=== PATIENT | female | born 1985 | race Caucasian/White ===

== ENCOUNTER 2019-02-17 16:40 | Inpatient (IN) | payer BC ==
[2019-02-17 17:51] VITALS: BMI 31.9
[2019-02-17 19:26] LABS: BASO % 0.4 % (0-2.0); EOS % 0.8 % (0-4.5); HEMATOCRIT 34.7 % (32.4-45.2); HEMOGLOBIN 11.6 GM/dL (10.7-15.3); LYMPH % 15.5 % (8-40); MCH 27.6 pg (25.7-33.7); MCHC 33.3 g/dl (32.0-36.0); MEAN CELL VOLUME 82.9 fl (80-96); MEAN PLT VOLUME 8.6 fl (7.5-11.1); MONO % 4.6 % (3.8-10.2); NEUT % 78.7 % (42.8-82.8); PLATELET COUNT 270 K/MM3 (134-434); RBC 4.19 M/mm3 (3.60-5.2); RDW 14.1 % (11.6-15.6); WHITE BLOOD COUNT 12.5 K/mm3 (4.0-10.0)
[2019-02-17 19:38] LABS: BLOOD UREA NITROGEN 16.3 mg/dL (7-18); CALCIUM 8.8 mg/dL (8.5-10.1); CREATININE 0.6 mg/dL (0.55-1.3)
[2019-02-17 19:42] LABS: INR 0.91 (0.83-1.09); PROTHROMBIN TIME (PATIENT) 10.7 SEC (9.7-13.0)
[2019-02-17 19:44] LABS: ACTIVATED PTT 28.7 SECONDS (25.2-36.5)
[2019-02-17] MEDS ORDERED: OXYTOCIN 30 UNITS in 0.9% NS 30 UNIT/500 ML INFUS.BAG IVPB ONE (20:22)
[2019-02-17] MEDS ORDERED: AMPICILLIN SODIUM 2 GM VIAL ONE (20:22)
[2019-02-17] MEDS ORDERED: BUTORPHANOL TARTRATE 1 MG/ML VIAL IVPB ONE (20:27)
[2019-02-17] MEDS ORDERED: PROMETHAZINE HCL 25 MG/1 ML VIAL IVPUSH ONE (20:27)
[2019-02-17] MEDS ORDERED: ELECTROLYTE-148 SOLN 1,000 ML IV SCH (20:30)
[2019-02-17] MEDS ORDERED: AMPICILLIN - 2 GM in SODIUM CHLORIDE 100 ML IVPB ONE (20:35)
--- NOTE | 2019-02-17 20:41 | HP ---
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: Alzheimer's, CVA, Dementia, Migraine, Multiple Sclerosis, Peripheral Neuropathy, Parkinson's, Seizure, Syncope, TIA, Vertigo, Other Cardiovascular: No: AFIB, Aneurysm, Aortic Insufficiency, Aortic Stenosis, CAD, CHF, Deep Vein Thrombosis, HTN, Hyperlipdemia, SC, Mitral Insufficiency, Mitral Stenosis, Murmur, Pulmonary Hypertension, Other Pulmonary: No: Asthma, Bronchitis, Cancer, COPD, O2 Dependent, Pneumonia, Previously Intubated, Pulmonary Embolus, Pulmonary Fibrosis, Sleep Apnea, Other Gastrointestinal: No: Ascites, Cancer, Constipation, Crohn's Disease, Diverticulitis, Diverticulosis, Esophageal Varices, Gastritis, GERD, GI Bleed, Hemorrhoids, Hiatal Hernia, Inflamatory Bowel Disease, Irritable Bowel Disease, Pancreatitis, Peptic Ulcer Disease, Ulcerative Colitis, Other Hepatobiliary: No: Cirrhosis, Cholelithiasis, Cholecystitis, Choledocholithiasis , Hepatitis A, Hepatitis B, Hepatitis C, Other Renal/: No: Renal Failure, Renal Inusuff, BPH, Cancer, Hematuria, Hemodialysis , Neurogenic Bladder, Renal Calculi, UTI, Other Reproductive: No: Ectopic , Endometriosis, Fibroids, PID, Polycystic Ovary Syndrome, Postmenopausal, Other ...: 2 ...Para: 0 ...Term: 0 ...: 0 ...Spon : 1 ...Induced : 0 ...Multiple Gestation: 0 ...EDC by Sono: 02/11/19 Heme/Onc: No: Anemia, B12 Deficiency, Bleeding Disorder, Cancer, Current Chemotherapy, Current Radiation Therapy, Hemochromatosis, Hypercoaguable State, Myeloproliferative Synd, Sickle Cell Disease, Sickle Cell Trait, Thrombocytopenia, Other Infectious Disease: No: AIDS, C-Diff, Herpes Zoster, HIV, MRSA, STD's, Tuberculosis, VREF, Other Psych: No: Addictions, Anxiety, Bipolar, Depression, Panic, Psychosis, Schizophrenia, Other Musculoskeletal: No: Bursitis, Chronic low back pain, Hemiparesis, Hemiplegia, Osteoarthritis, Paraplegia, Other Rheumatology: No: Fibromyalgia, Gout, Lupus, Rheumatoid Arthritis, Sarcoidosis, Vasculitis, Other ENT: No: Allergic Rhinitis, Sinusitis, Other Endocrine: No: [place]'s Disease, [place]'s Disease, Diabetes Insipidus, Diabetes Mellitus, Hyperparathyroidism, Hyperthyroidism, Hypothyroidism, Osteopenia, SIADH, Other Dermatology: No: Basal Cell, Cellulitis, Eczema, Melanoma, Psoriasis, Squamous Cell, Other - Past Surgical History Past Surgical History: No: None, AAA Repair, AICD, Amputation, Appendectomy, Arthrosocopy, AV Fistula/Graft, Bariatric Surgery, Breast Biopsy, Bypass, CABG, Carotid Endarterectomy, Cataract Removal, Cholecystectomy, Colectomy, Colonoscopy, Colostomy, Craniotomy, , Cystectomy, Hernia Repair, Hysterectomy, Ileal Conduit, Ileosotomy, Joint Replacement, Kidney Transplant, Laminectomy, Liver Transplant, Mastectomy, Nephrectomy, Oopherectomy, Orchiectomy, Permanent Pacemaker, Prostatectomy, Splenectomy, Stent, Thoracotomy , TURP, Tonsillectomy, Tubal Ligation, Upper Endoscopy, Valve Replacement, Vasectomy, Vein Stripping/Ligation Hx Myomectomy: No Hx Transabdominal Cerclage: No - Advance Directives Advance Directives: No: Living Will, Health Care Proxy, DNR, Organ Donor, Tissue Donor, MOLST - Smoking History Smoking history: Never smoked Have you smoked in the past 12 months: No - Alcohol/Substance Use Hx Alcohol Use: No History of Substance Use: reports: None - Social History Usual Living Arrangement: Yes: With Spouse Do you think of yourself as: Straight/Heterosexual ADL: Independent History of Recent Travel: No Home Medications - Allergies Allergies/Adverse Reactions: Allergies Allergy/AdvReac Type Severity Reaction Status Date / Time No Known Allergies Allergy Verified 02/17/19 17:32 - Home Medications Home Medications: Ambulatory Orders Prenat 115/Iron Fum/Folic/Dss [ 19 Tablet] 1 tab PO DAILY 02/17/19 Family Medical History Family History: Denies Review of Systems - Review of Systems Constitutional: reports: No Symptoms Eyes: reports: No Symptoms HENT: reports: No Symptoms Neck: reports: No Symptoms Cardiovascular: reports: No Symptoms Respiratory: reports: No Symptoms Gastrointestinal: reports: No Symptoms Genitourinary: reports: No Symptoms Breasts: reports: No Symptoms Reported Musculoskeletal: reports: No Symptoms Integumentary: reports: No Symptoms Neurological: reports: No Symptoms Endocrine: reports: No Symptoms Hematology/Lymphatic: reports: No Symptoms Psychiatric: reports: No Symptoms Pain Intensity: 2 Physical Exam - Maternity Vital Signs: Vital Signs Temperature 97.8 F 02/17/19 17:00 Pulse Rate 84 02/17/19 17:00 Respiratory Rate 20 02/17/19 17:00 Blood Pressure 128/77 02/17/19 17:00 O2 Sat by Pulse Oximetry (%) Constitutional: Yes: Well Nourished, No Distress, Calm Eyes: Yes: WNL, Conjunctiva Clear, EOM Intact HENT: Yes: WNL, Atraumatic, Normocephalic Neck: Yes: WNL, Supple, Trachea Midline Cardiovascular: Yes: WNL, Regular Rate and Rhythm Lungs: Clear to auscultation Breast(s): Yes: WNL - Abdominal Exam/OB Fundal Height: 40 Number of Fetuses: Single Presentation: Vertex Contractions: Yes Regularity: Irregular Intensity: Mild/Mod Monitor Mode: External Heart Rate Location: [facility] Category: I Accelerations: Uniform - Vaginal Exam/OB Vaginal Bleediing: No Speculum Exam: No Dilatation (cm): 2 Effacement (%): 60 Amniotic Membrane Status: Ruptured Amniotic Fluid: Yes: Clear Presentation: Vertex/Position Station: -2 - Physical Exam Musculoskeletal: Yes: WNL Extremities: Yes: WNL Edema: Yes Edema: LUE: 1+, RUE: 1+, LLE: 1+, RLE: 1+ Integumentary: Yes: WNL Deep Tendon Reflex Grade: Normal +2 ...Motor Strength: WNL Psychiatric: Yes: WNL, Alert, Oriented - Labs Lab Results: CBC, BMP 02/17/19 18:56 02/17/19 18:56 Assessment/Plan for induction w pitocin
[2019-02-17] MEDS ORDERED: OXYTOCIN 30 UNITS in 0.9% NS 30 UNIT/500 ML INFUS.BAG IVPB SCH (20:45)
[2019-02-17] MEDS ORDERED: BUTORPHANOL TARTRATE 1 MG/ML VIAL ONE ×2 (23:26)
[2019-02-17] MEDS ORDERED: PROMETHAZINE HCL 25 MG/1 ML VIAL ONE (23:27)
[2019-02-18] MEDS ORDERED: AMPICILLIN SODIUM 1 GM VIAL ONE (00:53)
[2019-02-18] MEDS: AMPICILLIN - 1 GM in SODIUM CHLORIDE 100 ML IVPB SCH ×2 (00:55→05:13)
[2019-02-18] MEDS ORDERED: FENTANYL/BUPIVACAINE/NS/PF - PCEA - 50 ML DISP.SYRIN EP ONE (01:28)
[2019-02-18] MEDS ORDERED: NALOXONE HCL 0.4 MG/ML VIAL IVPUSH PRN (01:31)
[2019-02-18] MEDS ORDERED: BUPIVACAINE HCL/PF 2.5 MG/ML - 30 ML VIAL IJ ONE (01:33)
[2019-02-18] MEDS ORDERED: FENTANYL/BUPIVACAINE/NS/PF - PCEA - 50 ML DISP.SYRIN EP SCH (01:45)
[2019-02-18] MEDS ORDERED: LIDO 2%/EPI 1:200000 PRESRVFRE (20 ML SDVIAL) ONE (04:20)
[2019-02-18] MEDS ORDERED: ceFAZolin SODIUM 1 GM VIAL ONE (04:28)
[2019-02-18] MEDS ORDERED: OXYTOCIN 10 UNITS/ML VIAL ONE (04:36)
[2019-02-18] MEDS ORDERED: morphine SULFATE/PF 0.5 MG/ML (2cc Syringe - QUVA) ONE ×3 (04:39)
[2019-02-18] MEDS ORDERED: ONDANSETRON 4 MG/2 ML VIAL IVPUSH PRN (04:47)
[2019-02-18] MEDS ORDERED: OXYTOCIN 20 UNITS in 0.9% NS 20 UNIT/1,000 ML INFUS.BAG IV ONE (05:31)
--- NOTE | 2019-02-18 05:31 | PN ---
Progress Note (short form) - Note Progress Note: 11pm nst reactive, occasinal skip fht, uc q 5 min, cx 3 cm , -2, 60%, continue laboring
--- NOTE | 2019-02-18 05:35 | PN ---
Progress Note (short form) - Note Progress Note: 02/18 2 am, 5 to 6 cm , more skip fht, possible deccel x 2 min, then recovered to 160 fht x 10 min, then down to 2 min again, otherwise good variability, accels present, will consider c s if deccel continue
--- NOTE | 2019-02-18 05:38 | PN ---
Progress Note (short form) - Note Progress Note: 02/18 3 am , 7cm , more deccels on and off, reactive, positive accel, positive variability, could be skip fht or heart block, because audible to be 160 range fht, will do c s
[2019-02-18] MEDS ORDERED: oxyCODONE HCL 5 MG TABLET PO PRN (05:42)
[2019-02-18] MEDS ORDERED: METHYLERGONOVINE MALEATE 0.2 MG/1 ML AMP IM PRN (05:42)
--- NOTE | 2019-02-18 05:42 | OP ---
Operative Note - Note: Operative Date: 02/18/19 Pre-Operative Diagnosis: non reassuring fht Operation: primary lt c s Findings: op, no can Post-Operative Diagnosis: Same as Pre-op Surgeon: Donavon Morales Rn Compliance: Chris Demarco Anesthesiologist/CONTROL CLERK: Chris Senior Anesthesia: Epidural Estimated Blood Loss (mls): 700 (no complications ) Operative Report Dictated: Yes
[2019-02-18] MEDS: OXYTOCIN 20 UNITS in 0.9% NS 20 UNIT/1,000 ML INFUS.BAG IV SCH ×2 (06:00→21:47)
[2019-02-18] MEDS: IBUPROFEN 800 MG/8 ML IJ IVPB PRN ×2 (08:05→21:47)
--- NOTE | 2019-02-18 19:40 | OP ---
DATE OF OPERATION: 02/18/2019 PREOPERATIVE DIAGNOSIS: Non-reassuring heart rate tracing, post dates. POSTOPERATIVE DIAGNOSIS: Occiput posterior. PROCEDURE: Primary low-transverse section. SURGEON: Donavon Morales MD SENIOR TECHNICAL BUSINESS ANALYST: PIOTR Mchugh ANESTHESIOLOGIST: Chris Senior MD INDICATION: This is a 33-year-old female patient, 41 weeks , was brought in to the hospital for induction process for post dates reason. The patient was 2 cm dilated to start with. Patient received artificial rupture of membranes and the Pitocin process. When patient came in, on NST the patient did have some occasional skipped heartbeats, and on monitor the heartbeat was skipped and dropped down to half of the normal rate occasionally; however, as the labor proceeded, about 11 o'clock, the patient received Stadol for pain medication, and after that, the patient occasionally had some deeper skipped heartbeat, but they recur. Now patient's pain has gotten worse. The patient received epidural around 2:30 to 3 o'clock. After 2:30 to 3 o'clock, patient's pain proceeded with more deeper heartbeat, then proceeded with more deceleration of heartbeat. This time the fetus skipped heartbeat, or heart block, we are not sure, and dropped down to 70 to 80 range occasionally for 2 or 3 minutes, and we readjusted monitor. We changed to internal monitor 3 times and we changed the toco and the heartbeat still showed that there is either heart block or skipped heartbeat. It dropped down to 70 for 2 minutes, then came back up. We checked the cervix. Patient still remote from delivery, still about 6 cm dilated, and the head still about -1 station, still about 80% effaced, so decision was made to proceed with section with non-reassuring heart rate tracing, with the above finding of occasional either deceleration or skipped heart beat or heart block. Although the patient's baby does have acceleration, baby does have good variability, so decision was made to proceed with section to avoid further deceleration. Patient was taken to the OR. The patient already had epidural anesthesia, so patient was topped off again and patient was placed on the operating table in supine position. The patient's abdomen and pelvis were prepped and draped in the usual sterile manner. A Pfannenstiel incision was made. Incision was made through skin and subcutaneous tissue until the fascia was nicked in the midline. The fascia was extended bilaterally. Intraperitoneal cavity was entered. Bladder flap was created. Low-transverse segment of uterus was entered. Baby delivered from OP presentation. Baby was handed over to usability architect after umbilical cord doubly clamped and cut. Cord blood gas was obtained. Placenta was removed. Uterus was closed in a single layer, good hemostasis. Both gutters cleaned. Both ovaries and fallopian tubes were within normal limits. Ovaries are very small, very atrophic small size of ovaries, especially on the left side ovary. Other than that, no complication. Patient tolerated the procedure well. Blood loss about 700 mL. Peritoneum was closed. The fascia was closed. The skin was closed. Transferred to recovery room in stable condition and draining clear urine. MD IVONNE NORTH/[id number]
[2019-02-19] MEDS ORDERED: BISACODYL 10 MG SUPP.RECT RC PRN (05:42)
[2019-02-19] MEDS: ACETAMINOPHEN 325 MG TABLET (FP) PO PRN (08:14)
[2019-02-19] MEDS: IBUPROFEN 600 MG TABLET (FP) PO PRN ×3 (08:15→21:35)
[2019-02-19] MEDS: SIMETHICONE 80 MG TAB.CHEW (FP) PO PRN ×3 (08:15→21:35)
[2019-02-19 08:27] LABS: BASO % 0.7 % (0-2.0); EOS % 0.8 % (0-4.5); HEMATOCRIT 28.6 % (32.4-45.2); HEMOGLOBIN 9.8 GM/dL (10.7-15.3); MCH 28.7 pg (25.7-33.7); MCHC 34.2 g/dl (32.0-36.0); MEAN CELL VOLUME 83.9 fl (80-96); MEAN PLT VOLUME 8.4 fl (7.5-11.1); NEUT % 80.5 % (42.8-82.8); PLATELET COUNT 185 K/MM3 (134-434); RDW 14.2 % (11.6-15.6); WHITE BLOOD COUNT 10.1 K/mm3 (4.0-10.0)
--- NOTE | 2019-02-19 09:56 | PN ---
Progress Note (short form) - Note Progress Note: Post op day#1.S/P C Section under epidural anesthesia uneventful.Patient stable and c/o some pain for which she is on medication.No any anesthesia related problem.Patient DC from the anesthesia care.
[2019-02-19] MEDS ORDERED: DIPHTH,PERTUSS(ACELL),TET 0.5 ML DISP.SYRIN IM ONE (10:00)
[2019-02-19] MEDS: ENOXAPARIN NA (PORCINE) 40 MG/0.4 ML DISP.SYRIN SQ SCH (10:58)
--- NOTE | 2019-02-19 16:57 | PN ---
Post Progress Note Post Day: 1 Type of Delivery: Primary C/S Vital Signs: Vital Signs Temperature 98.2 F 02/19/19 10:00 Pulse Rate 64 02/19/19 10:00 Respiratory Rate 18 02/19/19 10:00 Blood Pressure 110/64 02/19/19 10:00 O2 Sat by Pulse Oximetry (%) 98 02/18/19 06:15 Breast Exam: Yes: Soft Uterus: Yes: Fundus Firm, Fundus below umbilicus Incision: Yes: Dressing dry and intact, Sutures intact Abdomen/GI: Yes: Abdomen soft, Passing flatus, Tolerating PO Lochia: Yes: Serosa Lochia, amount: Small Extremities: Yes: Calves non-tender Perineum: Yes: Intact Activity: Ambulating (ambulating well , no complaints ) - Labs Labs: CBC WBC 10.1 K/mm3 (4.0-10.0) H 02/19/19 07:10 RBC 3.40 M/mm3 (3.60-5.2) L 02/19/19 07:10 Hgb 9.8 GM/dL (10.7-15.3) L 02/19/19 07:10 Hct 28.6 % (32.4-45.2) L D 02/19/19 07:10 MCV 83.9 fl (80-96) 02/19/19 07:10 MCH 28.7 pg (25.7-33.7) 02/19/19 07:10 MCHC 34.2 g/dl (32.0-36.0) 02/19/19 07:10 RDW 14.2 % (11.6-15.6) 02/19/19 07:10 Plt Count 185 K/MM3 (134-434) D 02/19/19 07:10 MPV 8.4 fl (7.5-11.1) 02/19/19 07:10 Absolute Neuts (auto) 8.2 K/mm3 (1.5-8.0) H 02/19/19 07:10 Neutrophils % 80.5 % (42.8-82.8) 02/19/19 07:10 Lymphocytes % 13.0 % (8-40) 02/19/19 07:10 Monocytes % 5.0 % (3.8-10.2) 02/19/19 07:10 Eosinophils % 0.8 % (0-4.5) 02/19/19 07:10 Basophils % 0.7 % (0-2.0) 02/19/19 07:10 Nucleated RBC % 0 % (0-0) 02/19/19 07:10
[2019-02-19] MEDS: oxyCODONE HCL 5 MG TABLET PO PRN ×2 (17:18→21:35)
[2019-02-19] MEDS: SENNOSIDES/DOCUSATE COMBO (SENNA PLUS) TABLET (UD) PO PRN (21:35)
[2019-02-20] MEDS: SIMETHICONE 80 MG TAB.CHEW (FP) PO PRN ×3 (08:41→21:04)
[2019-02-20] MEDS: IBUPROFEN 600 MG TABLET (FP) PO PRN ×3 (08:41→21:04)
[2019-02-20] MEDS: ACETAMINOPHEN 325 MG TABLET (FP) PO PRN ×3 (08:41→21:05)
[2019-02-20] MEDS: ENOXAPARIN NA (PORCINE) 40 MG/0.4 ML DISP.SYRIN SQ SCH (10:10)
--- NOTE | 2019-02-20 10:11 | PN ---
Post Progress Note Post Day: 2 Type of Delivery: Primary C/S Vital Signs: Vital Signs Temperature 97.4 F L 02/19/19 21:40 Pulse Rate 76 02/19/19 21:40 Respiratory Rate 20 02/19/19 21:40 Blood Pressure 124/84 02/19/19 21:40 O2 Sat by Pulse Oximetry (%) 98 02/18/19 06:15 Breast Exam: Yes: Soft Uterus: Yes: Fundus Firm, Fundus below umbilicus Incision: Yes: Dressing dry and intact, Sutures intact Abdomen/GI: Yes: Abdomen soft, Passing flatus, Tolerating PO Lochia: Yes: Serosa Lochia, amount: Small Extremities: Yes: Calves non-tender Perineum: Yes: Intact Activity: Ambulating - Labs Labs: CBC WBC 10.1 K/mm3 (4.0-10.0) H 02/19/19 07:10 RBC 3.40 M/mm3 (3.60-5.2) L 02/19/19 07:10 Hgb 9.8 GM/dL (10.7-15.3) L 02/19/19 07:10 Hct 28.6 % (32.4-45.2) L D 02/19/19 07:10 MCV 83.9 fl (80-96) 02/19/19 07:10 MCH 28.7 pg (25.7-33.7) 02/19/19 07:10 MCHC 34.2 g/dl (32.0-36.0) 02/19/19 07:10 RDW 14.2 % (11.6-15.6) 02/19/19 07:10 Plt Count 185 K/MM3 (134-434) D 02/19/19 07:10 MPV 8.4 fl (7.5-11.1) 02/19/19 07:10 Absolute Neuts (auto) 8.2 K/mm3 (1.5-8.0) H 02/19/19 07:10 Neutrophils % 80.5 % (42.8-82.8) 02/19/19 07:10 Lymphocytes % 13.0 % (8-40) 02/19/19 07:10 Monocytes % 5.0 % (3.8-10.2) 02/19/19 07:10 Eosinophils % 0.8 % (0-4.5) 02/19/19 07:10 Basophils % 0.7 % (0-2.0) 02/19/19 07:10 Nucleated RBC % 0 % (0-0) 02/19/19 07:10
--- NOTE | 2019-02-20 10:14 | DS ---
Physical Exam-CAD DRAFTER Vital Signs: Vital Signs Temperature 97.4 F L 02/19/19 21:40 Pulse Rate 76 02/19/19 21:40 Respiratory Rate 20 02/19/19 21:40 Blood Pressure 124/84 02/19/19 21:40 O2 Sat by Pulse Oximetry (%) 98 02/18/19 06:15 Constitutional: Yes: Well Nourished, No Distress, Calm Eyes: Yes: WNL, Conjunctiva Clear, EOM Intact HENT: Yes: WNL, Atraumatic, Normocephalic Neck: Yes: WNL, Supple, Trachea Midline Cardiovascular: Yes: WNL, Regular Rate and Rhythm Respiratory: Yes: WNL, Regular, CTA Bilaterally Gastrointestinal: Yes: WNL, Normal Bowel Sounds, Soft ...Rectal Exam: Yes: WNL Renal/: Yes: WNL Pelvis: Yes: WNL External Genitalia: Yes: Normal Internal Exam Deferred: Yes Vaginal Exam: Yes: Normal Cervix: Yes: Normal Uterus: Yes: Normal Adnexa: Normal: Bilateral ....Post : Yes: Uterus firm, Uterus non-tender Breast(s): Yes: WNL Musculoskeletal: Yes: WNL Extremities: Yes: WNL Edema: Yes Edema: LUE: 1+, RUE: 1+, LLE: 1+ Integumentary: Yes: WNL Wound/Incision: Yes: Clean/Dry, Well Approximated Neurological: Yes: WNL, Alert, Oriented ...Motor Strength: WNL Psychiatric: Yes: WNL, Alert, Oriented Labs: CBC, BMP 02/19/19 07:10 02/17/19 18:56 Delivery - Delivery Section: Primary Type of Anesthesia: Epidural Episiotomy/Laceration: None EBL (cc): 700 Delivery, Single - Stages of Labor Date 1st Stage Initiatied: 02/17/19 Time 1st Stage Initiated: 23:30 Date of Delivery: 02/18/19 Time of Delivery: 04:36 Time Placenta Delivered: 04:37 Placenta: Yes: Spontaneous - Condition of Infant Grinder Set Up Operator Thread/Medical Assistant Secretary Present: Yes Name: Jorge Alberto Salinas Infant Gender: Male Weight: 3.345 kg Position: OP Total Hours ROM (Hrs/Mins): 8H22M - 1 Minute Total Score: 9 5 Minutes Total Score: 9 - [place] Feeding Plan Initial Plan: Exclusive throughout hospitalization Discharge Summary Problems reviewed: Yes Reason For Visit: PITOCIN INDUCTION Procedures: Principal: primary lt c s Hospital Course: uneventful Health Concerns: none Plan of Treatment: oob as much as possible Goals: return to work in 8 weeks Condition: Good - Instructions Diet, Activity, Other Instructions: regular , routine post care Disposition: HOME - Home Medications Comprehensive Discharge Medication List: Ambulatory Orders Prenat 115/Iron Fum/Folic/Dss [ 19 Tablet] 1 tab PO DAILY 02/17/19 Prescription Drug Monitoring Program (I-STOP) results: I-STOP reviewed and no issues identified
[2019-02-20] MEDS: SENNOSIDES/DOCUSATE COMBO (SENNA PLUS) TABLET (UD) PO PRN (21:04)
[2019-02-21] MEDS: IBUPROFEN 600 MG TABLET (FP) PO PRN (05:36)
[2019-02-21] MEDS: ACETAMINOPHEN 325 MG TABLET (FP) PO PRN (05:37)
[2019-02-21 10:30] LABS: BASO % 0.5 % (0-2.0); EOS % 3.4 % (0-4.5); HEMATOCRIT 28.3 % (32.4-45.2); HEMOGLOBIN 9.7 GM/dL (10.7-15.3); LYMPH % 15.3 % (8-40); MCH 28.4 pg (25.7-33.7); MCHC 34.3 g/dl (32.0-36.0); MEAN CELL VOLUME 82.8 fl (80-96); MONO % 3.7 % (3.8-10.2); NEUT % 77.1 % (42.8-82.8); PLATELET COUNT 214 K/MM3 (134-434); RBC 3.42 M/mm3 (3.60-5.2); RDW 13.8 % (11.6-15.6); WHITE BLOOD COUNT 8.1 K/mm3 (4.0-10.0)
[2019-02-21] MEDS: OXYTOCIN 20 UNITS in 0.9% NS 20 UNIT/1,000 ML INFUS.BAG IV SCH (10:50)
[2019-02-21] MEDS: ENOXAPARIN NA (PORCINE) 40 MG/0.4 ML DISP.SYRIN SQ SCH (10:50)
[2019-02-21 10:59] VITALS: BP 130/81; PULSE 64; TEMP 97.5
--- NOTE | 2019-02-26 16:07 | PATH ---
Surgical Pathology Report Patient Name: JEN DEWITT [facility]. Rec. 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 Electronically Signed April Becerra M.D. Gross Description The specimen is received fresh labeled placenta and is a 423 gram, 19.0 x 17.0 x 2.3 cm. placenta with attached membranes and umbilical cord. The attached membranes are ornelas, translucent with focal opacities and insert marginally. The umbilical cord measures 42 cm. in length and averages 1 cm. in diameter. The cord inserts eccentrically, 5.5 cm. to the nearest margin. No true knots or strictures are identified. Cut surface of the umbilical cord reveals 3 vessels. The surface is pisano-blue with minimal fibrin deposition and appropriate caliber vessels. The maternal surface is red-brown with focal defects. Sectioning reveals red-brown, spongy parenchyma. No lesions are identified. Manager Marketing Communication sections are submitted in three cassettes as follows: 1- membrane rolls and umbilical cord; 2-3- full thickness sections of placenta. 02/23/2019 [facility]02/23/2019
== END 2019-02-21 12:25 | disposition home or self-care (01) | DRG 788 ==
LOC: JLDR 16:40 → J3W 02-18 07:35
PROVIDERS: ADMIT Obstetrics & Gynecology; ATTEND Obstetrics & Gynecology
PROC: 10D00Z1 Extraction of Products of Conception, Low, Open Approach (ICD-10-PCS; principal; 2019-02-18)
DX: O36.8330 Maternal care for abnormalities of the fetal heart rate or rhythm, third trimester, not applicable or unspecified (principal); O48.0 Post-term pregnancy; Z3A.40 40 weeks gestation of pregnancy; Z37.0 Single live birth
CPT/HCPCS: 36415; 80048; 85025; 85610; 85730; 86593; 86850; 86900; 86901; 87389; 88307-TC; 90715

== ENCOUNTER 2023-05-24 06:00 | Inpatient (IN) | payer BC ==
[2023-05-24] MEDS: ELECTROLYTE-148 SOLN 500 ML IV SCH ×2 (06:00→06:30)
[2023-05-24 06:49] VITALS: BMI 32.5
[2023-05-24] MEDS ORDERED: ELECTROLYTE-148 SOLN 1,000 ML IV SCH ×2 (07:00)
[2023-05-24] MEDS: CITRIC ACID/SODIUM CITRATE 30 ML UNIT-DOSE CUP PO ONE (07:25)
[2023-05-24] MEDS ORDERED: ONDANSETRON 4 MG/2 ML VIAL IVPUSH PRN (07:48)
[2023-05-24] MEDS ORDERED: ceFAZolin SODIUM 1 GM VIAL ONE (07:57)
[2023-05-24] MEDS ORDERED: SODIUM CHLORIDE 0.9% P/F 10 ML VIAL IJ ONE (07:57)
[2023-05-24] MEDS ORDERED: PHENYLEPHRINE HCL 10 MG/1 ML SINGLE DOSE VIAL ONE (07:57)
[2023-05-24] MEDS ORDERED: OXYTOCIN 10 UNITS/ML VIAL ONE ×4 (08:35→08:49)
[2023-05-24] MEDS ORDERED: ONDANSETRON 4 MG/2 ML VIAL ONE (08:36)
[2023-05-24] MEDS ORDERED: MIDAZOLAM HCL 2 MG/2 ML SINGLE DOSE VIAL ONE (08:51)
[2023-05-24] MEDS ORDERED: METHYLERGONOVINE MALEATE 0.2 MG/1 ML AMP IM PRN (09:49)
[2023-05-24] MEDS: FERROUS SO4 325 MG TABLET (FP) PO SCH (10:28)
[2023-05-24] MEDS: morphine SULFATE/PF 1 MG/2 ML (2cc Syringe - QUVA) EP ONE (10:28)
[2023-05-24] MEDS ORDERED: ACETAMINOPHEN INJECTION 100 ML IVPB ONE (11:10)
[2023-05-24] MEDS ORDERED: OXYTOCIN 20 UNITS in 0.9% NS 20 UNIT/1,000 ML INFUS.BAG IV ONE (11:13)
[2023-05-24] MEDS: ACETAMINOPHEN 1000 MG/100 ML BAG IVPB PRN (11:14)
[2023-05-24] MEDS: OXYTOCIN 20 UNITS in 0.9% NS 20 UNIT/1,000 ML INFUS.BAG IV SCH (11:14)
[2023-05-25] MEDS: IBUPROFEN 800 MG/8 ML IJ IVPB PRN (00:01)
[2023-05-25 08:18] LABS: BASO % 0.6 % (0-2.0); EOS % 0.8 % (0-4.5); HEMATOCRIT 26.1 % (32.4-45.2); HEMOGLOBIN 8.3 GM/dL (10.7-15.3); LYMPH % 15.8 % (8-40); MCH 24.4 pg (25.7-33.7); MCHC 31.9 g/dl (32.0-36.0); MEAN CELL VOLUME 76.6 fl (80-96); MEAN PLT VOLUME 8.4 fl (7.5-11.1); MONO % 4.8 % (3.8-10.2); PLATELET COUNT 212 10^3/uL (134-434); RDW 15.1 % (11.6-15.6); WHITE BLOOD COUNT 11.4 K/mm3 (4.0-10.0)
[2023-05-25] MEDS ORDERED: BISACODYL 10 MG SUPP.RECT RC PRN (09:49)
[2023-05-25] MEDS ORDERED: IBUPROFEN 600 MG TABLET (FP) PO PRN (09:49)
[2023-05-25] MEDS ORDERED: ACETAMINOPHEN 325 MG TABLET (FP) PO PRN (09:49)
[2023-05-25] MEDS: SIMETHICONE 80 MG TAB.CHEW (FP) PO PRN (10:14)
[2023-05-25] MEDS: IBUPROFEN 600 MG TABLET (FP) PO PRN (10:14)
[2023-05-25] MEDS: PRENATAL VITAMINS W/ FOLIC ACID TABLET (FP) PO SCH (10:14)
[2023-05-25] MEDS: oxyCODONE HCL 5 MG TABLET PO PRN ×2 (17:47→22:24)
[2023-05-25] MEDS: SENNOSIDES/DOCUSATE COMBO (SENNA PLUS) TABLET (UD) PO PRN (22:23)
[2023-05-26] MEDS: ACETAMINOPHEN 325 MG TABLET (FP) PO PRN (09:21)
[2023-05-27 10:30] VITALS: BP 132/75; PULSE 95; RESP 16; TEMP 97.8
== END 2023-05-27 12:35 | disposition home or self-care (01) | DRG 788 ==
LOC: JLDR 06:00 → J3W 11:30
PROVIDERS: ADMIT Obstetrics & Gynecology; ATTEND Obstetrics & Gynecology
PROC: 10D00Z1 Extraction of Products of Conception, Low, Open Approach (ICD-10-PCS; principal; 2023-05-24)
DX: O34.219 Maternal care for unspecified type scar from previous cesarean delivery (principal); Z3A.39 39 weeks gestation of pregnancy; Z37.0 Single live birth
CPT/HCPCS: 36415; 85025; 88307-TC; J0131